=== PATIENT | female | born 1985 | race Caucasian/White ===

== ENCOUNTER 2024-08-28 21:42 | Emergency (ER) | payer SELFPAY ==
[~2024-08-28] VITALS: Ht 165.1 cm; Wt 63.5 kg
[2024-08-28 22:05] VITALS: BP 133/83; TEMP 98.1
[2024-08-28 22:38] VITALS: O2SAT 98
== END 2024-08-28 22:44 | disposition left against medical advice (07) ==
LOC: ER 21:53
DX: S61.333A Puncture wound without foreign body of left middle finger with damage to nail, initial encounter (principal); W22.8XXA Striking against or struck by other objects, initial encounter; Y93.89 Activity, other specified; Y92.89 Other specified places as the place of occurrence of the external cause; Y99.8 Other external cause status